=== PATIENT | female | born 1995 | race Caucasian/White ===

== ENCOUNTER 2019-02-08 13:44 | Outpatient (CLI) | payer OTHER ==
--- NOTE | 2019-02-08 14:21 | ULT ---
Abdominal Ultrasound: Multiple grayscale images of right upper quadrant obtained according to protocol. INDICATION: Pain FINDINGS: Liver: Heterogeneous echotexture of the liver, with increased echogenicity at the biliary radicals. Gallbladder: Normal Gallbladder wall: Normal. Brown's Sign: Negative Common bile duct is normal. Ascites: None Spleen: Unremarkable. Pancreas: Partially obscured by bowel content, limiting assessment. Kidneys: No acute abnormalities. Aorta/IVC: No acute process. IMPRESSION: Heterogeneous echotexture of liver with decreased parenchymal echogenicity and relative increased ech ogenicity of the biliary radicals. Scan be seen in the setting of inflammation related to hepatitis. Correlate clinically. Is necessary, imaging follow-up May BE obtained.
--- NOTE | 2019-02-08 14:31 | RAD ---
TWO VIEW CHEST: HISTORY: Shortness of breath. Chest pain. FINDINGS: Lung dailey appear well aerated and clear. No infiltrate. No effusion. No pneumothorax. Heart and mediastinum unremarkable. Osseous structures unremarkable. IMPRESSION: Unremarkable chest. POS: H
== END 2019-02-08 13:45 | disposition home or self-care (01) ==
LOC: SCSULT 13:44
PROVIDERS: ATTEND Physician Assistant
DX: N12 Tubulo-interstitial nephritis, not specified as acute or chronic (principal); R10.11 Right upper quadrant pain; R06.02 Shortness of breath; R93.2 Abnormal findings on diagnostic imaging of liver and biliary tract
CPT/HCPCS: 36415; 71046; 76700; 80053; 83605; 83690; 85025; 85379; 87086

== ENCOUNTER 2019-02-09 13:11 | Outpatient (CLI) | payer OTHER ==
[~2019-02-09 13:11] MED LIST: Iopamidol 370 76% 100 ML VIAL ONE
[2019-02-09 13:55] LABS: BHCG - Serum Negative (NEGATIVE); Pregs Control Background? CLEAR/WHITE (CLR/WHITE); Pregs Control Bar Appear? YES (CONTROL BAR)
--- NOTE | 2019-02-09 14:32 | CT ---
CT angiogram chest with IV contrast and 3-D MIPS imaging HISTORY: Sepsis. Elevated d-dimer. FINDINGS: There is good contrast opacification of the pulmonary arteries and thoracic aorta. Great ve ssel origin is obscured the aortic arch by beam hardening artifact. No pleural fluid, pneumothorax, or mediastinal adenopathy. IMPRESSION: No CT evidence of pulmonary embolus.
[2019-02-09 14:50] LABS: HBSAg Index 0.29 S/CO (0-0.99); Hep B Surf Ag Non-Reactive S/CO (NonReactive); Hep C IgG Ab Non-Reactive (NonReactive); Hep C Index 0.04 S/CO (0-0.79)
[2019-02-09 14:51] LABS: Hep A IgM AB Non-Reactive (NonReactive)
[2019-02-09 14:52] LABS: HBCM Index 0.11 S/CO (0-0.79); Hepatitis B Core IgM Abs Non-Reactive (NonReactive)
== END 2019-02-09 13:12 | disposition home or self-care (01) ==
LOC: CT 13:11
PROVIDERS: ATTEND Physician Assistant
DX: Z32.00 Encounter for pregnancy test, result unknown (principal); R93.2 Abnormal findings on diagnostic imaging of liver and biliary tract; R79.89 Other specified abnormal findings of blood chemistry
CPT/HCPCS: 36415; 71275; 80074; 84703; Q9967